=== PATIENT | male | born 2005 | race Caucasian/White ===

== ENCOUNTER 2025-02-21 12:00 | Emergency (ER) | payer SELFPAY ==
[2025-02-21 12:07] VITALS: BP 162/96; PULSE 61; RESP 17; TEMP 36.6; O2SAT 100; BMI 17.6
[2025-02-21 12:36] LABS: Hematocrit 44.4 % (37-53); Hemoglobin 14.80 g/dL (13.2-15.6); Mean Corpuscular HGB Conc 33.3 g/dL (30-55); Mean Corpuscular Hemoglobin 29.4 pg (27-33); Mean Corpuscular Volume 88.1 fl (82-101); Nucleated Red Blood Cells % 0 %; Platelet Count 205 10^3/cmm (157-399); Red Blood Count 5.04 10^6/uL (3.85-5.65); White Blood Count 9.76 10^3/uL (4.5-13.0)
[2025-02-21 13:00] VITALS: BP 150/100
[2025-02-21 13:04] LABS: Alanine Aminotransferase 652 U/L (0-41); Albumin Level 4.5 g/dL (3.5-5.2); Alkaline Phosphatase 111 U/L (40-130); Anion Gap 13.9 (5-19); Blood Urea Nitrogen 10 mg/dL (6-20); Calcium 8.9 mg/dL (8.5-10.5); Carbon Dioxide 28 mmol/L (22-29); Chloride 98 mmol/L (98-107); Globulin 2.5 g/dL (1.3-4.6); Glucose 120 mg/dL (65-115); Lipase 16 U/L (13-60); Osmolality Calculated 282 mOsm/kg (285-295); Potassium 3.9 mmol/L (3.5-5.1); Sodium 136 mmol/L (136-145); Total Protein 7.0 g/dL (6.6-8.7)
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
[2025-02-21 13:12] LABS: Aspartate Amino Transferase 1884 U/L (0-40)
[2025-02-21] MEDS: iohexol 350 mg/mL 500 mL Btl (per mL) IV (13:33)
[2025-02-21] MEDS: morphine 4 mg/mL SDV 1 mL 2 MG IVP (14:30)
[2025-02-21 14:44] VITALS: BP 137/99; PULSE 60; O2SAT 100
[2025-02-21 15:12] VITALS: BP 134/96; PULSE 58; O2SAT 98
[2025-02-21 15:37] LABS: Hepatitis A Antibody IgM Non-Reactive (Nonreactive); Hepatitis B Surface Antigen Non-Reactive (Nonreactive)
== END 2025-02-21 15:18 | disposition home or self-care (01) ==
PROVIDERS: Physician Assistant; Emergency Provider Family Medicine
DX: R07.89 Other chest pain (principal); R74.01 Elevation of levels of liver transaminase levels
CPT/HCPCS: 36415; 70450; 71260; 72125; 74177; 80053; 80074; 83690; 85025; 96361; 96374; 96375; 99285; J1885; J2270; J7030